=== PATIENT | male | born 1955 | race Caucasian/White ===

== ENCOUNTER 2021-05-25 21:43 | Emergency (ER) | payer MEDICARE ==
[~2021-05-25] VITALS: Ht 182.9 cm; Wt 76.4 kg
[2021-05-25 21:45] VITALS: BP 139/87
[2021-05-25 23:31] LABS: ALANINE AMINOTRANSFERASE 17 U/L (12-78); ALBUMIN 3.6 G/DL (3.4-5.0); ALBUMIN/GLOBULIN RATIO 1.2 (1.1-1.5); ALKALINE PHOSPHATASE 76 IU/L (46-116); ANION GAP 9 (8-16); ASPARTATE AMINO TRANSFERASE 11 U/L (10-37); BILIRUBIN,TOTAL 0.4 MG/DL (0.1-1.0); BLOOD UREA NITROGEN 15 MG/DL (7-18); BUN/CREATININE RATIO 20.8 (5.4-32.0); CHLORIDE 100 MMOL/L (99-107); CREATININE 0.72 MG/DL (0.60-1.10); GLUCOSE 102 MG/DL (70-104); POTASSIUM 4.3 MMOL/L (3.5-5.1); SODIUM 138 MMOL/L (135-145); TOTAL CARBON DIOXIDE 28.9 MMOL/L (24-32); TOTAL PROTEIN 6.5 G/DL (6.4-8.2); eGFR > 90 ML/MIN
[2021-05-25] MEDS ORDERED: diphenhydrAMINE 25mg capsule PO ONE (23:45)
== END 2021-05-26 00:43 | disposition home or self-care (01) ==
LOC: ER 21:44
DX: G47.62 Sleep related leg cramps (principal); R05.9 Cough, unspecified; R06.02 Shortness of breath; J44.9 Chronic obstructive pulmonary disease, unspecified; F17.200 Nicotine dependence, unspecified, uncomplicated; G60.9 Hereditary and idiopathic neuropathy, unspecified
CPT/HCPCS: 36415; 80053; 83735; 99284; Q0163

== ENCOUNTER 2021-06-01 18:24 | Inpatient (IN) | payer MEDICARE, OTHER ==
[~2021-06-01] VITALS: Ht 185.4 cm; Wt 76.0 kg
[2021-06-01] MEDS ORDERED: methylPREDNISolone sod succ 125mg/2ml vial IV ONE (18:55)
[2021-06-01] MEDS ORDERED: ipratropium/albuterol 3ml nebule NEB PRN (18:55)
[2021-06-01 18:58] LABS: BASOPHILS # (AUTO) 0.1 X10'3 (0-0.2); BASOPHILS % (AUTO) 0.7 % (0-1); EOSINOPHILS # (AUTO) 0.1 X10'3 (0-0.9); EOSINOPHILS % (AUTO) 0.7 % (0-6); HEMATOCRIT 43.5 % (42.0-52.0); HEMOGLOBIN 14.6 g/dl (14.0-17.9); LYMPHOCYTES # (AUTO) 1.4 X10'3 (1.1-4.8); LYMPHOCYTES % (AUTO) 15.6 % (21-51); MEAN CORPUSCULAR HEMOGLOBIN 29.2 PG (27.0-31.0); MEAN CORPUSCULAR HGB CONC 33.4 g/dL (33.0-36.5); MEAN CORPUSCULAR VOLUME 87.3 FL (78-98); MEAN PLATELET VOLUME 7.8 FL (7.4-10.4); MONOCYTES # (AUTO) 0.8 X10'3 (0-0.9); MONOCYTES % (AUTO) 9.3 % (2-12); NEUTROPHILS # (AUTO) 6.6 X10'3 (1.8-7.7); NEUTROPHILS % (AUTO) 73.7 % (42-75); PLATELET COUNT 226 X10'3 (140-440); RED BLOOD COUNT 4.99 X10'6 (4.70-6.10); RED CELL DISTRIBUTION WIDTH 14.5 % (11.5-14.5); WHITE BLOOD COUNT 8.9 X10'3 (4.5-11.0)
[2021-06-01] MEDS ORDERED: ALBUTEROL INHALER 1 PUFF/90 MCG INHALER IH PRN (19:25)
[2021-06-01 19:41] LABS: ALANINE AMINOTRANSFERASE 23 U/L (12-78); ALBUMIN 3.6 G/DL (3.4-5.0); ALBUMIN/GLOBULIN RATIO 1.2 (1.1-1.5); ALKALINE PHOSPHATASE 85 IU/L (46-116); ANION GAP 5 (8-16); ASPARTATE AMINO TRANSFERASE 22 U/L (10-37); BILIRUBIN,TOTAL 0.3 MG/DL (0.1-1.0); BLOOD UREA NITROGEN 11 MG/DL (7-18); BUN/CREATININE RATIO 12.6 (5.4-32.0); CALCIUM 8.4 MG/DL (8.5-10.1); CHLORIDE 98 MMOL/L (99-107); CREATININE 0.87 MG/DL (0.60-1.10); GLUCOSE 135 MG/DL (70-104); POTASSIUM 4.2 MMOL/L (3.5-5.1); SODIUM 135 MMOL/L (135-145); TOTAL CARBON DIOXIDE 32.1 MMOL/L (24-32); TOTAL PROTEIN 6.7 G/DL (6.4-8.2); eGFR 87 ML/MIN
[2021-06-01 19:50] LABS: MAGNESIUM 1.7 MG/DL (1.5-2.4)
[2021-06-01] MEDS ORDERED: hydrOXYzine 25 MG tablet PO ONE (19:50)
[2021-06-01] MEDS ORDERED: HYDR-3686 PO (21:41)
[2021-06-01] MEDS ORDERED: ALB0.5UD IH (21:41)
[2021-06-01] MEDS ORDERED: GABA600T13 PO (21:41)
[2021-06-01] MEDS ORDERED: ALBU18HF2 INH ×2 (22:43)
[2021-06-01] MEDS ORDERED: gabapentin 300mg capsule PO ONE (22:55)
[2021-06-01] MEDS ORDERED: gabapentin 300mg capsule PO SCH (22:55)
[2021-06-02] MEDS ORDERED: ondansetron/PF 4mg/2ml inj IV PRN (00:40)
[2021-06-02] MEDS ORDERED: magnesium 2GM in 50ml NS 50 ML IV PRN (00:40)
[2021-06-02] MEDS ORDERED: magnesium Cl slow-release 64mg tablet PO PRN (00:40)
[2021-06-02] MEDS ORDERED: mag hydrox/Alum hydrox/simeth 30ml oral suspension PO PRN (00:40)
[2021-06-02] MEDS ORDERED: PERFLUTREN PROTEIN-A MICROSPHR (Optison) 0.22 MG/ML 3ML VIAL IV PRN (00:40)
[2021-06-02] MEDS ORDERED: potassium CL 10mEq/100ml bag 100 ML IV PRN (00:40)
[2021-06-02] MEDS ORDERED: magnesium hydroxide 30ml (MOM) UD suspension PO PRN (00:40)
[2021-06-02] MEDS ORDERED: potassium Cl 20 mEq SR tablet PO PRN ×2 (00:40)
[2021-06-02] MEDS ORDERED: magnesium 4gm in 100ml NS 100 ML IV PRN (00:40)
[2021-06-02] MEDS ORDERED: acetaminophen 325mg tablet PO PRN (00:40)
[2021-06-02] MEDS: albuterol 2.5 MG/3 ML nebule NEB PRN ×6 (01:36→22:53)
[2021-06-02 01:59] LABS: ABG BASE EXCESS 2.9 mmol/L (-2.0-2.0); ABG HCO3 28.4 mmol/L (22.0-26.0); ABG OXYGEN SATURATION 97.4 % (94-97); ABG PCO2 (T) 46.6 mmHg (35.0-48.0); ABG PO2 (T) 98.2 mmHg (75.0-100.0); FCOHb 1.4 % (0.0-3.9); FLOW 3 L/min; FMetHb 0.2 % (0.0-1.5); FO2Hb 95.8 % (94-97); TOTAL HEMOGLOBIN 15.2 G/dl (14.0-18.0)
--- NOTE | 2021-06-02 06:54 | NUR ---
PT AWAITING IPA, PT'S RN ATTEMTPED TO OBTAIN HOME MEDICATIONS THE PT HAS WITH HIM. PT IS REFUSING TO RELINQUISH THE MEDCIATION, STATING THAT HE HAS HIS SONS MEDICATIONS AND CAN NOT TRUST THE [facility] TO ADMININISTER THEM SINCE THE PT IS UNABLE TO ADMISTER THE MEDICATINS TO HIMSELF. AFTER CONSULTING NURSING ZINC PLATE CUTTER, PT WAS INFORMED THAT FOR LEGAL REASONS THAT THE MEDICATION NEEDED TO BE COLLECTED AND SENT TO THE PHARMACY FOR SAFE KEEPING AND WHEN HE IS DC HIS MEDICATION WOULD BE RETURNED IN TOTAL. PT CONTINUES TO REFUSE TO RELIQUINSH HIS HOME MEDICATIONS. PT WAS INFORMED THAT A RESULT OF NOT LETTING THE PHARMACY HOLD HIS MEDICATION, HE COULD LEAVE AMA. PT STATES THAT HE "WILL HAVE TO THINK ABOUT THIS" PT'S RN WAS NOTIFIED AND TOLD TO INFORM THE HOSPITALIST OF THE SITUATION.
[2021-06-02] MEDS: docusate sod 100mg capsule PO SCH ×2 (08:00→20:00)
[2021-06-02] MEDS: K and/or MAG REPLACEMENT MC SCH ×2 (08:00→20:00)
[2021-06-02 08:26] LABS: POTASSIUM 4.6 MMOL/L (3.5-5.1)
[2021-06-02] MEDS: methylPREDNISolone sod succ/PF 40mg inj. IV SCH ×2 (08:54→20:10)
[2021-06-02] MEDS: hydrOXYzine 25 MG tablet PO SCH ×2 (08:54→20:12)
[2021-06-02] MEDS: heparin, porcine 5000 units/ml vial SQ SCH ×2 (08:54→20:13)
[2021-06-02] MEDS ORDERED: GABA300C PO (10:22)
[2021-06-02] MEDS ORDERED: iohexol 350MG/ML 100ml bottle IV ONE (13:13)
--- NOTE | 2021-06-02 18:25 | NUR ---
Patient in room [facility] 340. I have received report from DON RANGEL and had the opportunity to ask questions and assume patient care. Addendum: 06/02/21 at 1825 by Felicia Reed RN Amended: Links added.
[2021-06-02 20:00] VITALS: BP 187/84
[2021-06-02] MEDS: gabapentin 400mg capsule PO SCH (20:12)
[2021-06-03] VITALS: BP 124/78
[2021-06-03] MEDS: albuterol 2.5 MG/3 ML nebule NEB PRN ×4 (04:26→20:26)
--- NOTE | 2021-06-03 05:19 | NUR ---
0430 PT RECEIVED RT TREATMENT AND DRINKING A CUP OF COFFEE AFTER THAT.MRSA SWAB DONE AFTER COMPLETION OF DARTING HIM.
[2021-06-03 06:07] LABS: BASOPHILS % (AUTO) 0.2 % (0-1); EOSINOPHILS % (AUTO) 0 % (0-6); HEMATOCRIT 45.4 % (42.0-52.0); LYMPHOCYTES # (AUTO) 0.7 X10'3 (1.1-4.8); LYMPHOCYTES % (AUTO) 5.7 % (21-51); MEAN CORPUSCULAR HEMOGLOBIN 28.9 PG (27.0-31.0); MEAN CORPUSCULAR VOLUME 87.6 FL (78-98); MEAN PLATELET VOLUME 8.1 FL (7.4-10.4); MONOCYTES # (AUTO) 0.5 X10'3 (0-0.9); MONOCYTES % (AUTO) 4.6 % (2-12); NEUTROPHILS # (AUTO) 10.4 X10'3 (1.8-7.7); NEUTROPHILS % (AUTO) 89.5 % (42-75); PLATELET COUNT 256 X10'3 (140-440); RED BLOOD COUNT 5.18 X10'6 (4.70-6.10); RED CELL DISTRIBUTION WIDTH 14.3 % (11.5-14.5); WHITE BLOOD COUNT 11.6 X10'3 (4.5-11.0)
[2021-06-03 06:34] LABS: ALANINE AMINOTRANSFERASE 20 U/L (12-78); ALBUMIN 3.6 G/DL (3.4-5.0); ALBUMIN/GLOBULIN RATIO 1.1 (1.1-1.5); ALKALINE PHOSPHATASE 78 IU/L (46-116); ANION GAP 7 (8-16); ASPARTATE AMINO TRANSFERASE 15 U/L (10-37); BILIRUBIN,TOTAL 0.2 MG/DL (0.1-1.0); BLOOD UREA NITROGEN 14 MG/DL (7-18); BUN/CREATININE RATIO 20.9 (5.4-32.0); CALCIUM 9.1 MG/DL (8.5-10.1); CHLORIDE 99 MMOL/L (99-107); CREATININE 0.67 MG/DL (0.60-1.10); GLUCOSE 134 MG/DL (70-104); POTASSIUM 5.1 MMOL/L (3.5-5.1); SODIUM 140 MMOL/L (135-145); TOTAL CARBON DIOXIDE 33.8 MMOL/L (24-32); eGFR > 90 ML/MIN
--- NOTE | 2021-06-03 06:35 | NUR ---
Problems reprioritized. Patient report given, questions answered & plan of care reviewed with DON PERRY. Addendum: 06/03/21 at 0635 by Felicia Reed RN Amended: Links added.
[2021-06-03 07:00] VITALS: BP 147/91
[2021-06-03] MEDS: docusate sod 100mg capsule PO SCH ×2 (08:00→20:00)
[2021-06-03] MEDS: heparin, porcine 5000 units/ml vial SQ SCH ×2 (08:00→20:00)
[2021-06-03] MEDS: K and/or MAG REPLACEMENT MC SCH ×2 (08:00→20:00)
[2021-06-03] MEDS: hydrOXYzine 25 MG tablet PO SCH ×2 (08:53→21:10)
[2021-06-03] MEDS: methylPREDNISolone sod succ/PF 40mg inj. IV SCH ×2 (08:53→21:30)
[2021-06-03 11:00] VITALS: BP 135/79
--- NOTE | 2021-06-03 13:59 | NUR ---
PAGED SANTANA RE: PAGER ID: [phone] MESSAGE: ALEXY DORSEY. PT REQUESTING ALBUTEROL INHALER AND COUGH MED. SURGICAL [facility] [id number]
[2021-06-03] MEDS: guaiFENesin/codeine phos 10ml UD oral syrup PO PRN (16:51)
[2021-06-03] MEDS: ALBUTEROL INHALER 1 PUFF/90 MCG INHALER IH PRN (16:58)
[2021-06-03] MEDS: guaiFENesin ER 600mg tablet PO SCH (21:10)
[2021-06-03] MEDS: gabapentin 400mg capsule PO SCH (21:11)
--- NOTE | 2021-06-03 23:32 | NUR ---
Student Medication Administration: For this medication-pass time frame, all medication were reviewed, dispensed, administered and documented per hospital policy by Josep MACEDO [facility].
[2021-06-03 23:35] VITALS: BP 129/87
[2021-06-04] VITALS: BP 134/76
[2021-06-04] MEDS: guaiFENesin/codeine phos 10ml UD oral syrup PO PRN ×2 (01:30→15:15)
[2021-06-04] MEDS: ALBUTEROL INHALER 1 PUFF/90 MCG INHALER IH PRN ×3 (02:37→20:13)
[2021-06-04] MEDS: albuterol 2.5 MG/3 ML nebule NEB PRN ×4 (02:40→20:05)
[2021-06-04 06:12] LABS: BASOPHILS % (AUTO) 0.3 % (0-1); EOSINOPHILS % (AUTO) 0 % (0-6); HEMATOCRIT 44.4 % (42.0-52.0); HEMOGLOBIN 14.9 g/dl (14.0-17.9); LYMPHOCYTES # (AUTO) 0.4 X10'3 (1.1-4.8); LYMPHOCYTES % (AUTO) 4.6 % (21-51); MEAN CORPUSCULAR HEMOGLOBIN 29.4 PG (27.0-31.0); MEAN CORPUSCULAR HGB CONC 33.5 g/dL (33.0-36.5); MEAN CORPUSCULAR VOLUME 87.8 FL (78-98); MONOCYTES # (AUTO) 0.4 X10'3 (0-0.9); MONOCYTES % (AUTO) 4.4 % (2-12); NEUTROPHILS # (AUTO) 8.3 X10'3 (1.8-7.7); NEUTROPHILS % (AUTO) 90.7 % (42-75); PLATELET COUNT 264 X10'3 (140-440); RED BLOOD COUNT 5.06 X10'6 (4.70-6.10); RED CELL DISTRIBUTION WIDTH 14.4 % (11.5-14.5); WHITE BLOOD COUNT 9.1 X10'3 (4.5-11.0)
[2021-06-04 06:26] LABS: ALANINE AMINOTRANSFERASE 23 U/L (12-78); ALBUMIN 3.5 G/DL (3.4-5.0); ALBUMIN/GLOBULIN RATIO 1.1 (1.1-1.5); ALKALINE PHOSPHATASE 70 IU/L (46-116); ANION GAP 1 (8-16); ASPARTATE AMINO TRANSFERASE 16 U/L (10-37); BILIRUBIN,TOTAL 0.2 MG/DL (0.1-1.0); BLOOD UREA NITROGEN 16 MG/DL (7-18); BUN/CREATININE RATIO 25.8 (5.4-32.0); CHLORIDE 96 MMOL/L (99-107); CREATININE 0.62 MG/DL (0.60-1.10); GLUCOSE 152 MG/DL (70-104); POTASSIUM 5.3 MMOL/L (3.5-5.1); SODIUM 136 MMOL/L (135-145); TOTAL PROTEIN 6.7 G/DL (6.4-8.2); eGFR > 90 ML/MIN
--- NOTE | 2021-06-04 06:30 | NUR ---
Problems reprioritized. Patient report given, questions answered & plan of care reviewed with ANTON OCHOA.
--- NOTE | 2021-06-04 06:48 | NUR ---
Patient in room [facility] 340. I have received report from Marlene OCHOA and had the opportunity to ask questions and assume patient care.
[2021-06-04] MEDS: methylPREDNISolone sod succ/PF 40mg inj. IV SCH ×2 (07:47→19:49)
[2021-06-04] MEDS: hydrOXYzine 25 MG tablet PO SCH ×2 (07:52→19:48)
[2021-06-04] MEDS: guaiFENesin ER 600mg tablet PO SCH ×2 (07:52→19:48)
[2021-06-04] MEDS: heparin, porcine 5000 units/ml vial SQ SCH ×2 (07:59→20:00)
[2021-06-04] MEDS: docusate sod 100mg capsule PO SCH ×2 (07:59→20:00)
[2021-06-04 08:00] VITALS: BP 128/82
[2021-06-04] MEDS: K and/or MAG REPLACEMENT MC SCH ×2 (08:00→20:00)
--- NOTE | 2021-06-04 08:15 | NUR ---
Patient refused Heparin and Colace. Educated patient on indications for taking Heparin (VTE propylaxis). Patient again refused, stated "I walk around enough."
--- NOTE | 2021-06-04 11:55 | NUR ---
O2 Sat at rest on room air:__85_% If below 89%: Recovery O2 Sat at rest on _3__LPM:_93__%:___% via__NC (mask/nasal cannula, etc..) No further documentation is necessary. If O2 Sat did not drop below 89% on room air,ambulate patient on room air. O2 Sat while ambulating on room air:___% Recovery O2 Sat while ambulating on ___LPM:___% No further documentation is necessary. If patient does not drop below 89% while ambulating, he/she does not qualify for home O2.
[2021-06-04 12:00] VITALS: BP 146/89
--- NOTE | 2021-06-04 13:20 | NUR ---
Patient in room [facility] 340. I have received report from ALEXSANDER, vernon and had the opportunity to ask questions and assume patient care.
[2021-06-04] MEDS ORDERED: PRED10TA23 PO (13:47)
[2021-06-04] MEDS ORDERED: GUAI600T45 PO (13:47)
--- NOTE | 2021-06-04 16:35 | NUR ---
pt refusing to walk again. doc aware.
--- NOTE | 2021-06-04 18:28 | NUR ---
Problems reprioritized. Patient report given, questions answered & plan of care reviewed with Peggy OCHOA traveler.
[2021-06-04] MEDS: gabapentin 400mg capsule PO SCH (19:53)
[2021-06-04 20:00] VITALS: BP 155/98
[2021-06-05] VITALS: BP 139/88
[2021-06-05] MEDS: ALBUTEROL INHALER 1 PUFF/90 MCG INHALER IH PRN ×3 (04:02→16:46)
[2021-06-05] MEDS: albuterol 2.5 MG/3 ML nebule NEB PRN ×3 (04:02→19:15)
[2021-06-05] MEDS: guaiFENesin/codeine phos 10ml UD oral syrup PO PRN ×2 (05:36→20:20)
[2021-06-05 06:19] LABS: BASOPHILS % (AUTO) 0 % (0-1); EOSINOPHILS % (AUTO) 0 % (0-6); LYMPHOCYTES # (AUTO) 0.6 X10'3 (1.1-4.8); LYMPHOCYTES % (AUTO) 7.5 % (21-51); MEAN CORPUSCULAR HEMOGLOBIN 29.4 PG (27.0-31.0); MEAN CORPUSCULAR HGB CONC 33.3 g/dL (33.0-36.5); MEAN CORPUSCULAR VOLUME 88.4 FL (78-98); MEAN PLATELET VOLUME 7.6 FL (7.4-10.4); MONOCYTES # (AUTO) 0.5 X10'3 (0-0.9); MONOCYTES % (AUTO) 6.5 % (2-12); NEUTROPHILS # (AUTO) 7.2 X10'3 (1.8-7.7); PLATELET COUNT 272 X10'3 (140-440); RED BLOOD COUNT 5.09 X10'6 (4.70-6.10); RED CELL DISTRIBUTION WIDTH 13.9 % (11.5-14.5); WHITE BLOOD COUNT 8.3 X10'3 (4.5-11.0)
--- NOTE | 2021-06-05 06:20 | NUR ---
Patient in room [facility] 340. I have received report from Laurie OCHOA and had the opportunity to ask questions and assume patient care.
[2021-06-05 06:46] LABS: ALANINE AMINOTRANSFERASE 29 U/L (12-78); ALBUMIN 3.4 G/DL (3.4-5.0); ALBUMIN/GLOBULIN RATIO 0.9 (1.1-1.5); ALKALINE PHOSPHATASE 67 IU/L (46-116); ANION GAP 5 (8-16); ASPARTATE AMINO TRANSFERASE 15 U/L (10-37); BILIRUBIN,TOTAL 0.3 MG/DL (0.1-1.0); BLOOD UREA NITROGEN 13 MG/DL (7-18); BUN/CREATININE RATIO 19.4 (5.4-32.0); CALCIUM 8.9 MG/DL (8.5-10.1); CHLORIDE 95 MMOL/L (99-107); CREATININE 0.67 MG/DL (0.60-1.10); GLUCOSE 172 MG/DL (70-104); POTASSIUM 4.9 MMOL/L (3.5-5.1); SODIUM 135 MMOL/L (135-145); TOTAL CARBON DIOXIDE 35.3 MMOL/L (24-32); eGFR > 90 ML/MIN
--- NOTE | 2021-06-05 06:55 | NUR ---
Problems reprioritized. Patient report given, questions answered & plan of care reviewed with Rima OCHOA.
[2021-06-05 07:00] VITALS: BP 122/73
[2021-06-05] MEDS: methylPREDNISolone sod succ/PF 40mg inj. IV SCH (07:21)
[2021-06-05] MEDS: K and/or MAG REPLACEMENT MC SCH ×2 (07:21→20:00)
[2021-06-05] MEDS: hydrOXYzine 25 MG tablet PO SCH ×3 (07:21→20:14)
[2021-06-05] MEDS: guaiFENesin ER 600mg tablet PO SCH ×2 (07:21→16:39)
[2021-06-05] MEDS: docusate sod 100mg capsule PO SCH ×2 (07:21→20:00)
[2021-06-05] MEDS: heparin, porcine 5000 units/ml vial SQ SCH ×2 (07:22→20:00)
--- NOTE | 2021-06-05 07:29 | NUR ---
O2 Sat at rest on room air:_88__% If below 89%: Recovery O2 Sat at rest on _2__LPM:_94__%:___% via___n/c (mask/nasal cannula, etc..) No further documentation is necessary. If O2 Sat did not drop below 89% on room air,ambulate patient on room air. O2 Sat while ambulating on room air:__84_% Recovery O2 Sat while ambulating on _2__LPM:_90__% No further documentation is necessary. If patient does not drop below 89% while ambulating, he/she does not qualify for home O2.
[2021-06-05 12:00] VITALS: BP 139/91
--- NOTE | 2021-06-05 13:30 | NUR ---
Per Nicole LOPEZ, [employer] will be paid x1 mo by [facility], and a cab will be provided to drive pt to a pharmacy to get his meds, and then deliver pt to [facility]. [facility]. She also stated that ELOISA Ibrahim has spoken to pt about other living arrangements but currently there are no other options. The patient was notified of dc plan. Pt discussed an alternative destination w/ "[facility] [facility]" rep, but according to the spokesperson via patient's phone, they did not have approval yet for receiving the pt. Pt to go to [facility]..
[2021-06-05] MEDS: predniSONE 20 mg tablet PO SCH (16:39)
--- NOTE | 2021-06-05 16:49 | NUR ---
PAGER ID: [phone] MESSAGE: Umair Jett 340 B Need printed prescriptions for prednisone and Mucinex for pt 340B to [facility]. Pt. cant pay for medications. Need stat Rima [id number]
--- NOTE | 2021-06-05 16:57 | NUR ---
Spoke with nursing bookkeepers supervisor. Pt. is not getting discharged tonight r/t not being able to pay for medications and 02 not getting here until 1615. Cab then called but at 1700 no cab arrival. [facility] closes at 1700 for medical bed, and [facility]
--- NOTE | 2021-06-05 17:28 | NUR ---
PAGER ID: [phone] MESSAGE: [phone] Jordy Jett Pt. cannot discharge today- too late. [place] closed. No money for meds. IV already out. Can we have no IV order please? PING pt. in AM? Rima 2230
--- NOTE | 2021-06-05 18:14 | NUR ---
Gave report to Peggy OCHOA.
[2021-06-05 20:00] VITALS: BP 154/90
[2021-06-05] MEDS: gabapentin 300mg capsule PO SCH (20:13)
--- NOTE | 2021-06-05 20:34 | NUR ---
PAGE TO HOSPITALIST PAGER ID: [phone] MESSAGE: ALEXY DORSEY RM 340 B PT SUPPOSED TO BE ON GABAPENTIN 1200 MG BUT HAS 600 MG SCHEDULED.ALREADY RECEIVED 600.COULD YOU ORDER THE REMAINING 600 MG THANKS MARIANO OCHOA [phone]
[2021-06-05] MEDS ORDERED: gabapentin 400mg capsule PO ONE (21:25)
[2021-06-05 23:22] VITALS: BP 154/91
[2021-06-06] MEDS: hydrOXYzine 25 MG tablet PO SCH ×3 (03:05→14:30)
[2021-06-06] MEDS: guaiFENesin/codeine phos 10ml UD oral syrup PO PRN (03:05)
[2021-06-06] MEDS: albuterol 2.5 MG/3 ML nebule NEB PRN ×3 (04:05→17:21)
[2021-06-06 06:15] LABS: BASOPHILS % (AUTO) 0.2 % (0-1); EOSINOPHILS % (AUTO) 0 % (0-6); HEMATOCRIT 50.9 % (42.0-52.0); LYMPHOCYTES # (AUTO) 1.1 X10'3 (1.1-4.8); LYMPHOCYTES % (AUTO) 12.9 % (21-51); MEAN CORPUSCULAR HEMOGLOBIN 29.3 PG (27.0-31.0); MEAN CORPUSCULAR HGB CONC 33.4 g/dL (33.0-36.5); MEAN CORPUSCULAR VOLUME 87.6 FL (78-98); MEAN PLATELET VOLUME 7.7 FL (7.4-10.4); MONOCYTES # (AUTO) 0.8 X10'3 (0-0.9); MONOCYTES % (AUTO) 9.8 % (2-12); NEUTROPHILS # (AUTO) 6.6 X10'3 (1.8-7.7); NEUTROPHILS % (AUTO) 77.1 % (42-75); PLATELET COUNT 316 X10'3 (140-440); RED BLOOD COUNT 5.81 X10'6 (4.70-6.10); RED CELL DISTRIBUTION WIDTH 14.2 % (11.5-14.5); WHITE BLOOD COUNT 8.6 X10'3 (4.5-11.0)
[2021-06-06 06:25] LABS: ALANINE AMINOTRANSFERASE 35 U/L (12-78); ALBUMIN 3.6 G/DL (3.4-5.0); ALBUMIN/GLOBULIN RATIO 0.9 (1.1-1.5); ALKALINE PHOSPHATASE 69 IU/L (46-116); ANION GAP -1 (8-16); ASPARTATE AMINO TRANSFERASE 15 U/L (10-37); BILIRUBIN,TOTAL 0.4 MG/DL (0.1-1.0); BLOOD UREA NITROGEN 14 MG/DL (7-18); BUN/CREATININE RATIO 21.9 (5.4-32.0); CALCIUM 9.4 MG/DL (8.5-10.1); CHLORIDE 97 MMOL/L (99-107); CREATININE 0.64 MG/DL (0.60-1.10); GLUCOSE 131 MG/DL (70-104); POTASSIUM 4.3 MMOL/L (3.5-5.1); SODIUM 136 MMOL/L (135-145); TOTAL PROTEIN 7.5 G/DL (6.4-8.2); eGFR > 90 ML/MIN
--- NOTE | 2021-06-06 06:35 | NUR ---
Problems reprioritized. Patient report given, questions answered & plan of care reviewed with Dharmesh OCHOA.
--- NOTE | 2021-06-06 06:38 | NUR ---
Patient in room [facility] 340. I have received report from DON Woods and had the opportunity to ask questions and assume patient care.
--- NOTE | 2021-06-06 06:57 | NUR ---
PAGER ID: [phone] MESSAGE: 340B- Jordy Schilling- critical CO2 40. Patient is A&O and monitoring his spo2% on his oximeter. He states he has been wearing his o2 on and off. Was on 1-2LNC per patient and Currently 93% RA.-Dharmesh 0076
[2021-06-06 07:00] VITALS: BP 166/96
[2021-06-06] MEDS: predniSONE 20 mg tablet PO SCH (07:02)
[2021-06-06] MEDS: guaiFENesin ER 600mg tablet PO SCH (07:04)
[2021-06-06] MEDS: gabapentin 300mg capsule PO SCH (07:05)
[2021-06-06] MEDS: heparin, porcine 5000 units/ml vial SQ SCH (07:05)
[2021-06-06] MEDS: docusate sod 100mg capsule PO SCH (07:05)
--- NOTE | 2021-06-06 07:21 | NUR ---
PAGER ID: [phone] MESSAGE: 340B- Jordy Schilling- critical CO2 40. Patient is A&O and monitoring his spo2% on his oximeter. He states he has been wearing his o2 on and off. Was on 1-2LNC per patient and Currently 93% RA.-Dharmesh 5522
[2021-06-06] MEDS: K and/or MAG REPLACEMENT MC SCH (08:00)
[2021-06-06 08:58] VITALS: BP 143/81
[2021-06-06 09:43] VITALS: BP 147/87
--- NOTE | 2021-06-06 09:47 | NUR ---
PAGER ID: [phone] MESSAGE: 340B- Jordy Schilling-pt states he doesn't "feel well. I'm dizzy and I'm sick to my stomach." Sitting up at edge of bed. VSS 147/87, 22, 110, 93% 1LNC. Says had anxiety and takes atarax. [place] was [place] 0702. [place] [facility] [place]
[2021-06-06] MEDS: ALBUTEROL INHALER 1 PUFF/90 MCG INHALER IH PRN ×2 (09:49→17:23)
[2021-06-06] MEDS ORDERED: LORazepam 0.5 MG tablet PO ONE (10:40)
[2021-06-06 11:56] VITALS: BP 127/84
[2021-06-06] MEDS ORDERED: PRED20TA PO (13:42)
[2021-06-06] MEDS ORDERED: GUAI600T45 PO (13:42)
--- NOTE | 2021-06-06 15:41 | NUR ---
Discussed with patient discharge instructions and new prescriptions. Patient verbalizes understanding of teaching and new prescriptions. Patient has 02 in room ready for dc. Patient awaiting taxi arrival for crab picker. Brown paper bag meal given to patient.
--- NOTE | 2021-06-06 18:41 | NUR ---
Patient dc'd with all personal belongings including home meds that were stored in pharmacy. Patient dc'd escorted down in wheelchair by PCT. Cab waiting for patient.
== END 2021-06-06 18:50 | disposition home or self-care (01) | DRG 191 ==
LOC: ER 18:25 → ED HOLD 06-02 00:42 → SUR 3N 06-02 16:45
PROVIDERS: ADMIT Internal Medicine; ATTEND Internal Medicine
PROC: B32T1ZZ Computerized Tomography (CT Scan) of Left Pulmonary Artery using Low Osmolar Contrast (ICD-10-PCS; principal; 2021-06-02)
PROC: B3201ZZ Computerized Tomography (CT Scan) of Thoracic Aorta using Low Osmolar Contrast (ICD-10-PCS; 2021-06-02)
PROC: B32S1ZZ Computerized Tomography (CT Scan) of Right Pulmonary Artery using Low Osmolar Contrast (ICD-10-PCS; 2021-06-02)
DX: J44.1 Chronic obstructive pulmonary disease with (acute) exacerbation (principal); E87.2 Acidosis; G47.33 Obstructive sleep apnea (adult) (pediatric); Z20.822 Contact with and (suspected) exposure to COVID-19; F17.200 Nicotine dependence, unspecified, uncomplicated; E87.5 Hyperkalemia; F41.9 Anxiety disorder, unspecified; Z79.899 Other long term (current) drug therapy; Z71.6 Tobacco abuse counseling
CPT/HCPCS: 36415; 36600; 71045; 71275; 80053; 82803; 83735; 83880; 84132; 84484; 85018; 85025; 87081; 87502; 87503; 87635; 93005; 93306; 94640; 94760; 99285; C9803; G0378; J1644; J2920; J2930; J7512; Q0177; Q9967

== ENCOUNTER 2021-08-20 17:04 | Inpatient (IN) | payer MEDICARE, MEDICAID ==
[~2021-08-20] VITALS: Ht 185.4 cm; Wt 84.1 kg
[~2021-08-20 17:04] MED LIST: ALBU18HF2 INH; CETI10TA14 PO; CLIN-97 PO; FLUT1BLS4 PO; GABA600T13 PO; HYDR-3686 PO; IPRA4AER IH; LEVO500T90 PO; METF-1203 PO; NICO-687 TD; PRED20TA PO; ROBDML PO; TRAM50TA2 PO
[2021-08-20] MEDS ORDERED: acetaminophen 325mg tablet PO STA (17:32)
[2021-08-20] MEDS ORDERED: vancomycin/NS 1 GM ADD-VANTAGE 250 ML IV ONE (17:35)
[2021-08-20] MEDS ORDERED: ipratropium/albuterol 3ml nebule NEB ONE ×2 (17:35→22:20)
[2021-08-20] MEDS ORDERED: normal saline 1000ML IV soln IV ONE (17:35)
[2021-08-20] MEDS: piperacillin/tazo 3.375gm/50ml 50 ML IV ONE ×2 (18:04→18:31)
[2021-08-20 19:11] LABS: BASOPHILS % (AUTO) 0.5 % (0-1); EOSINOPHILS % (AUTO) 0.1 % (0-6); HEMATOCRIT 31.3 % (42.0-52.0); HEMOGLOBIN 10.8 g/dl (14.0-17.9); LYMPHOCYTES # (AUTO) 0.4 X10'3 (1.1-4.8); LYMPHOCYTES % (AUTO) 15.3 % (21-51); MEAN CORPUSCULAR HEMOGLOBIN 29.4 PG (27.0-31.0); MEAN CORPUSCULAR HGB CONC 34.6 g/dL (33.0-36.5); MEAN PLATELET VOLUME 6.8 FL (7.4-10.4); MONOCYTES # (AUTO) 0.5 X10'3 (0-0.9); MONOCYTES % (AUTO) 15.6 % (2-12); NEUTROPHILS % (AUTO) 68.5 % (42-75); PLATELET COUNT 171 X10'3 (140-440); RED BLOOD COUNT 3.68 X10'6 (4.70-6.10); RED CELL DISTRIBUTION WIDTH 14.9 % (11.5-14.5); WHITE BLOOD COUNT 2.9 X10'3 (4.5-11.0)
[2021-08-20 19:21] LABS: ALANINE AMINOTRANSFERASE 28 U/L (12-78); ALBUMIN 2.4 G/DL (3.4-5.0); ALBUMIN/GLOBULIN RATIO 0.8 (1.1-1.5); ALKALINE PHOSPHATASE 60 IU/L (46-116); ANION GAP 3 (8-16); ASPARTATE AMINO TRANSFERASE 16 U/L (10-37); BILIRUBIN,TOTAL 0.6 MG/DL (0.1-1.0); BLOOD UREA NITROGEN 6 MG/DL (7-18); BUN/CREATININE RATIO 9.4 (5.4-32.0); CALCIUM 7.2 MG/DL (8.5-10.1); CHLORIDE 89 MMOL/L (99-107); CREATININE 0.64 MG/DL (0.60-1.10); GLUCOSE 88 MG/DL (70-104); POTASSIUM 3.5 MMOL/L (3.5-5.1); TOTAL CARBON DIOXIDE 27.7 MMOL/L (24-32); TOTAL PROTEIN 5.4 G/DL (6.4-8.2); eGFR > 90 ML/MIN
[2021-08-20 19:26] LABS: SODIUM 120 MMOL/L (135-145)
[2021-08-20 19:29] LABS: ETHANOL < 0.010 GM/DL (0.0-0.010); MAGNESIUM 1.2 MG/DL (1.5-2.4)
[2021-08-20 21:26] LABS: CLARITY,URINE CLEAR (Clear); COLOR,URINE YELLOW (Yellow); GLUCOSE, URINE NEGATIVE (Neg); KETONES,URINE NEGATIVE (Neg); LEUKOCYTE ESTERASE ,URINE NEGATIVE (Neg); NITRITES, URINE NEGATIVE (Neg); OCCULT BLOOD,URINE NEGATIVE (Neg); PH,URINE 6.5 (4.8-8.0); PROTEIN,URINE NEGATIVE (Neg); UA COLLECTION TYPE CLN CATCH MIDSTREAM
[2021-08-20 21:31] LABS: URINE AMPHETAMINE SCREEN NEGATIVE (Neg); URINE BARBITUATE SCREEN NEGATIVE (Neg); URINE BENZODIAZEPINES SCREEN NEGATIVE (Neg); URINE CANNABINOID SCREEN NEGATIVE (Neg); URINE COCAINE SCREEN NEGATIVE (Neg); URINE METHADONE SCREEN NEGATIVE (Neg); URINE OPIATE SCREEN POSITIVE (Neg); URINE PHENCYCLIDINE SCREEN NEGATIVE (Neg)
[2021-08-20] MEDS ORDERED: albuterol 2.5 MG/3 ML nebule NEB ONE (22:20)
[2021-08-20 22:50] LABS: PLATELET ESTIMATE NORMAL; TOTAL CELLS COUNTED 100
[2021-08-20] MEDS ORDERED: acetaminophen 325mg tablet PO PRN (23:20)
[2021-08-20] MEDS ORDERED: magnesium 2GM in 50ml NS 50 ML IV PRN (23:20)
[2021-08-20] MEDS ORDERED: mag hydrox/Alum hydrox/simeth 30ml oral suspension PO PRN (23:20)
[2021-08-20] MEDS ORDERED: ondansetron/PF 4mg/2ml inj IV PRN (23:20)
[2021-08-20] MEDS ORDERED: potassium CL 10mEq/100ml bag 100 ML IV PRN (23:20)
[2021-08-20] MEDS ORDERED: POTASSIUM BICARB 20meq eff tab 20 MEQ TABLET.EFF PO PRN (23:20)
[2021-08-20] MEDS ORDERED: magnesium hydroxide 30ml (MOM) UD suspension PO PRN (23:20)
[2021-08-20] MEDS ORDERED: magnesium 4gm in 100ml NS 100 ML IV PRN (23:20)
[2021-08-20] MEDS ORDERED: magnesium Cl slow-release 64mg tablet PO PRN (23:20)
[2021-08-20 23:48] LABS: MAGNESIUM 1.4 MG/DL (1.5-2.4); POTASSIUM 3.6 MMOL/L (3.5-5.1)
[2021-08-20] MEDS ORDERED: HYDR-3686 PO (23:58)
[2021-08-20] MEDS ORDERED: GABA600T13 PO (23:58)
[2021-08-20] MEDS ORDERED: CLIN300C54 PO (23:58)
[2021-08-20] MEDS ORDERED: LEVO500T90 PO (23:58)
[2021-08-21] MEDS: normal saline 1000ml 1,000 ML IV SCH ×3 (00:01→21:51)
[2021-08-21] MEDS ORDERED: hydrOXYzine 25 MG tablet PO PRN (00:10)
[2021-08-21] MEDS: clindamycin 300mg/D5W 50mL 50 ML IV SCH ×4 (00:32→21:40)
[2021-08-21 01:54] LABS: BASOPHILS % (AUTO) 0.3 % (0-1); EOSINOPHILS % (AUTO) 0.4 % (0-6); HEMATOCRIT 33.4 % (42.0-52.0); HEMOGLOBIN 11.1 g/dl (14.0-17.9); LYMPHOCYTES # (AUTO) 0.7 X10'3 (1.1-4.8); LYMPHOCYTES % (AUTO) 19.9 % (21-51); MEAN CORPUSCULAR HEMOGLOBIN 28.8 PG (27.0-31.0); MEAN CORPUSCULAR HGB CONC 33.4 g/dL (33.0-36.5); MEAN CORPUSCULAR VOLUME 86.3 FL (78-98); MEAN PLATELET VOLUME 6.8 FL (7.4-10.4); MONOCYTES # (AUTO) 0.6 X10'3 (0-0.9); MONOCYTES % (AUTO) 16.6 % (2-12); NEUTROPHILS # (AUTO) 2.2 X10'3 (1.8-7.7); NEUTROPHILS % (AUTO) 62.8 % (42-75); PLATELET COUNT 175 X10'3 (140-440); RED BLOOD COUNT 3.87 X10'6 (4.70-6.10); RED CELL DISTRIBUTION WIDTH 14.8 % (11.5-14.5); WHITE BLOOD COUNT 3.5 X10'3 (4.5-11.0)
[2021-08-21 02:00] LABS: ALANINE AMINOTRANSFERASE 26 U/L (12-78); ALBUMIN 2.4 G/DL (3.4-5.0); ALBUMIN/GLOBULIN RATIO 0.8 (1.1-1.5); ALKALINE PHOSPHATASE 60 IU/L (46-116); ANION GAP 6 (8-16); ASPARTATE AMINO TRANSFERASE 18 U/L (10-37); BILIRUBIN,TOTAL 0.4 MG/DL (0.1-1.0); BLOOD UREA NITROGEN 7 MG/DL (7-18); CALCIUM 7.5 MG/DL (8.5-10.1); CHLORIDE 91 MMOL/L (99-107); GLUCOSE 96 MG/DL (70-104); MAGNESIUM 1.5 MG/DL (1.5-2.4); POTASSIUM 3.3 MMOL/L (3.5-5.1); SODIUM 124 MMOL/L (135-145); TOTAL CARBON DIOXIDE 26.9 MMOL/L (24-32); TOTAL PROTEIN 5.6 G/DL (6.4-8.2); eGFR > 90 ML/MIN
[2021-08-21] MEDS ORDERED: LORazepam 2 mg/ml vial IV ONE ×2 (04:20→06:15)
[2021-08-21] MEDS: K and/or MAG REPLACEMENT MC SCH ×2 (08:00→21:55)
--- NOTE | 2021-08-21 08:30 | NUR ---
Hospitalist was paged as pt anxious and with air hunger. RT paged and pt to receive breathing tx as well.
[2021-08-21] MEDS: albuterol 2.5 MG/3 ML nebule NEB PRN ×2 (08:40→22:28)
--- NOTE | 2021-08-21 08:51 | NUR ---
PATIENT SATURATION 100%% ON 6 lpm. PATIENT SEVERELY ANXIOUS WITH CORSE DIM BREATH SOUNDS. ALBUTEROL TX GIVEN, WITH NO CHANGE IN SOB. SPOKE WITH RN POST TX, Addendum: 08/21/21 at 0854 by Dora Person - MATH AND PHYSICS INSTRUCTOR Traveler RT WE BOTH AGREE THAT HE IS EXPERIENCING EXTREME ANXIETY DUE TO THE SOB AND THE MD IS PAGED.PATIENT COACHED ON TAKING DEEP PURSED LIP BREATHS AND SEEMED TO RELAX A LITTLE. WILL MONITOR HIM WITH DON
--- NOTE | 2021-08-21 08:55 | NUR ---
Pt receiving breathing tx at present time. Pt remains anxious and moving about in bed, hospitalist repaged.
--- NOTE | 2021-08-21 09:35 | NUR ---
HOSPITALIST DR. TREVIÑO HERE AT PT BEDSIDE, RECEIVING AND PUTTING VO IN PER MD REQUEST FOR MEDS.
[2021-08-21] MEDS ORDERED: methylPREDNISolone sod succ 125mg/2ml vial IV ONE (09:40)
[2021-08-21] MEDS ORDERED: furosemide 10 MG/1 ML 10ml inj IV ONE (09:40)
[2021-08-21] MEDS ORDERED: morphine 2 MG/ML inj. syringe IV PRN (09:45)
[2021-08-21] MEDS: gabapentin 300mg capsule PO SCH ×2 (09:46→21:42)
[2021-08-21] MEDS: POTASSIUM BICARB 20meq eff tab 20 MEQ TABLET.EFF PO PRN ×2 (09:46→21:41)
[2021-08-21] MEDS: docusate sod 100mg capsule PO SCH ×2 (09:46→21:51)
[2021-08-21] MEDS: heparin, porcine 5000 units/ml vial SQ SCH ×2 (09:49→21:42)
--- NOTE | 2021-08-21 11:54 | NUR ---
PT ASSISTED TO BSC, LINENS CHANGED AND PT NOW BACK IN BED RESTING.
--- NOTE | 2021-08-21 15:39 | NUR ---
PT PLACED ON HOSPITAL BED AND PLACED IN DRY LINEN.
[2021-08-21] MEDS: cefTRIAXone 1g/NS 100ml IVPB 100 ML IV SCH (15:50)
[2021-08-21] MEDS ORDERED: LORazepam 0.5 MG tablet PO PRN (16:20)
[2021-08-21] MEDS ORDERED: HYDROcodone/acetaminophen 5mg/325mg tablet PO PRN (16:20)
[2021-08-21] MEDS ORDERED: ipratropium/albuterol 3ml nebule NEB ONE (18:05)
[2021-08-21] MEDS: methylPREDNISolone sod succ 125mg/2ml vial IV SCH (21:41)
[2021-08-22] MEDS: methylPREDNISolone sod succ 125mg/2ml vial IV SCH ×2 (02:00→08:00)
[2021-08-22 02:10] LABS: EOSINOPHILS % (AUTO) 0 % (0-6); HEMOGLOBIN 11.5 g/dl (14.0-17.9); LYMPHOCYTES # (AUTO) 0.3 X10'3 (1.1-4.8); MEAN PLATELET VOLUME 6.5 FL (7.4-10.4); MONOCYTES # (AUTO) 0.3 X10'3 (0-0.9); NEUTROPHILS % (AUTO) 68.4 % (42-75); WHITE BLOOD COUNT 1.7 X10'3 (4.5-11.0)
[2021-08-22 02:12] LABS: BASOPHILS % (AUTO) 0.4 % (0-1); HEMATOCRIT 34.6 % (42.0-52.0); LYMPHOCYTES % (AUTO) 15.8 % (21-51); MEAN CORPUSCULAR HEMOGLOBIN 28.7 PG (27.0-31.0); MEAN CORPUSCULAR HGB CONC 33.2 g/dL (33.0-36.5); MEAN CORPUSCULAR VOLUME 86.4 FL (78-98); MONOCYTES % (AUTO) 15.4 % (2-12); NEUTROPHILS # (AUTO) 1.1 X10'3 (1.8-7.7); PLATELET COUNT 200 X10'3 (140-440); RED CELL DISTRIBUTION WIDTH 14.8 % (11.5-14.5)
[2021-08-22 02:24] LABS: ALANINE AMINOTRANSFERASE 27 U/L (12-78); ALBUMIN 2.6 G/DL (3.4-5.0); ALBUMIN/GLOBULIN RATIO 0.8 (1.1-1.5); ALKALINE PHOSPHATASE 65 IU/L (46-116); ANION GAP 3 (8-16); ASPARTATE AMINO TRANSFERASE 18 U/L (10-37); BILIRUBIN,TOTAL 0.2 MG/DL (0.1-1.0); BLOOD UREA NITROGEN 9 MG/DL (7-18); BUN/CREATININE RATIO 15.5 (5.4-32.0); CALCIUM 8.4 MG/DL (8.5-10.1); CHLORIDE 94 MMOL/L (99-107); CREATININE 0.58 MG/DL (0.60-1.10); GLUCOSE 202 MG/DL (70-104); MAGNESIUM 1.8 MG/DL (1.5-2.4); SODIUM 131 MMOL/L (135-145); TOTAL CARBON DIOXIDE 33.8 MMOL/L (24-32); eGFR > 90 ML/MIN
[2021-08-22] MEDS: clindamycin 300mg/D5W 50mL 50 ML IV SCH (02:45)
[2021-08-22 04:23] VITALS: BP 104/66
[2021-08-22] MEDS: albuterol 2.5 MG/3 ML nebule NEB PRN (05:14)
[2021-08-22] MEDS: normal saline 1000ml 1,000 ML IV SCH (05:19)
[2021-08-22] MEDS: K and/or MAG REPLACEMENT MC SCH (07:07)
--- NOTE | 2021-08-22 07:25 | NUR ---
PT IS AWAKE, REQUESTING COFFEE. PT STATES THAT HE WANTS TO LEAVE, "NO ONE HAS TOLD ME ANYTHING, I DON'T KNOW WHY I AM STILL HERE". DR TREVIÑO PAGED TO INFORM THAT PT WISHES TO SPEAK WITH HIM ISAIAH
--- NOTE | 2021-08-22 08:43 | NUR ---
PER WANTS TO LEAVE AMA, HUDSON HAS BEEN PAGED
[2021-08-22] MEDS: gabapentin 300mg capsule PO SCH (09:38)
[2021-08-22] MEDS: docusate sod 100mg capsule PO SCH (09:38)
[2021-08-22] MEDS: cefTRIAXone 1g/NS 100ml IVPB 100 ML IV SCH (09:38)
--- NOTE | 2021-08-22 11:24 | NUR ---
PT WANTING TO LEAVE AMA, DR TREVIÑO PAGE AND NOTIFIED BY BIG DATA LEAD PT SIGNED AMA AND TAKEN OUT OF ER VIA WHEELCHAIR TO WAIT FOR CAB THAT HE CALLED. DR TREVIÑO REQUESTED TO COME TO ER TO SIGN AMA FORM CURRENT PROVIDER
== END 2021-08-22 11:42 | disposition left against medical advice (07) | DRG 189 ==
LOC: ER 17:05 → ED HOLD 23:20 → EDBEDREQ 08-21 07:17
PROVIDERS: ADMIT Internal Medicine; ATTEND Internal Medicine
DX: J96.01 Acute respiratory failure with hypoxia (principal); J85.1 Abscess of lung with pneumonia; J10.08 Influenza due to other identified influenza virus with other specified pneumonia; I50.31 Acute diastolic (congestive) heart failure; E87.1 Hypo-osmolality and hyponatremia; J44.0 Chronic obstructive pulmonary disease with (acute) lower respiratory infection; J44.1 Chronic obstructive pulmonary disease with (acute) exacerbation; N17.9 Acute kidney failure, unspecified; Z20.822 Contact with and (suspected) exposure to COVID-19; D72.819 Decreased white blood cell count, unspecified; D72.821 Monocytosis (symptomatic); F17.200 Nicotine dependence, unspecified, uncomplicated; I48.91 Unspecified atrial fibrillation; Z53.29 Procedure and treatment not carried out because of patient's decision for other reasons; Z59.00 Homelessness unspecified; Z79.899 Other long term (current) drug therapy
CPT/HCPCS: 36415; 71045; 71250; 80053; 80305; 80320; 81003; 83605; 83735; 83880; 84132; 84145; 84484; 85007; 85025; 87040; 87502; 87503; 87635; 94640; 94760; 96365; 96366; 96368; 99285; G0378; J0696; J1644; J1940; J2060; J2270; J2543; J2930; J3370; J3490; J7030; Q0177